=== PATIENT | male | born 1985 | race Two or more races ===

== ENCOUNTER 2022-12-26 07:41 | Emergency (ER) | payer SELFPAY ==
[~2022-12-26] VITALS: Ht 172.7 cm; Wt 65.0 kg
[2022-12-26 08:00] VITALS: BP 140/88; PULSE 116; RESP 14; O2SAT 97
== END 2022-12-26 12:29 | disposition home or self-care (01) ==
LOC: EDBD 07:41 → ER 07:41
DX: T50.7X1A Poisoning by analeptics and opioid receptor antagonists, accidental (unintentional), initial encounter (principal); F15.10 Other stimulant abuse, uncomplicated; Y92.9 Unspecified place or not applicable
CPT/HCPCS: 93005